=== PATIENT | male | born 1985 | race Two or more races ===

== ENCOUNTER 2024-09-14 19:46 | Emergency (ER) | payer OTHER ==
[~2024-09-14] VITALS: Ht 177.8 cm; Wt 87.1 kg
== END 2024-09-14 22:15 | disposition home or self-care (01) ==
LOC: ER 19:47
DX: R53.81 Other malaise (principal); J10.1 Influenza due to other identified influenza virus with other respiratory manifestations; Z20.822 Contact with and (suspected) exposure to COVID-19

== ENCOUNTER 2025-01-06 12:53 | Emergency (ER) | payer OTHER ==
[~2025-01-06] VITALS: Ht 177.8 cm; Wt 86.2 kg
[2025-01-06] MEDS ORDERED: CEFTRIAXONE SODIUM 1,000 MG VIAL IM STA (15:17)
[2025-01-06] MEDS ORDERED: METHYLPREDNISOLONE SOD SUCC 40 MG VIAL IM STA (15:17)
[2025-01-06] MEDS ORDERED: METHYLPREDNISOLONE SOD SUCC 40 MG VIAL ONE (15:32)
[2025-01-06] MEDS ORDERED: CEFTRIAXONE SODIUM 1,000 MG VIAL ONE (15:32)
== END 2025-01-06 19:07 | disposition home or self-care (01) ==
LOC: ER 12:53
DX: G51.0 Bell's palsy (principal)